=== PATIENT | male | born 2000 | race Caucasian/White ===

== ENCOUNTER 2021-01-05 06:31 | Inpatient (IN) | payer SELFPAY ==
[~2021-01-05] VITALS: Ht 170.2 cm; Wt 57.6 kg
[2021-01-05 06:45] LABS: BASO # 0.1 x10^3/uL (0.0-0.2); BASO % 1 % (0-3); EOS % 0 % (0-3); HEMATOCRIT 44.1 % (39.0-53.0); HEMOGLOBIN 14.7 g/dL (13.0-17.5); LYMPH # 4.9 x10^3/uL (1.0-4.8); LYMPH % 26 % (24-48); MEAN CORPUSCULAR HEMOGLOBIN 28 pg (25-35); MEAN CORPUSCULAR HGB CONC 33 g/dL (31-37); MEAN CORPUSCULAR VOLUME 85 fL (79-100); MONO # 1.4 x10^3/uL (0.0-1.1); MONO % 7 % (0-9); NEUT # 12.5 x10^3/uL (1.8-7.7); NEUT % 66 % (31-73); PLATELET COUNT 316 x10^3/uL (140-400); RED BLOOD COUNT 5.18 x10^6/uL (4.30-5.70); RED CELL DISTRIBUTION WIDTH 14.2 % (11.5-14.5)
[2021-01-05] MEDS ORDERED: IV NORMAL SALINE 1000ML BAG 1,000 ML IV ONE ×2 (07:00→08:30)
[2021-01-05] MEDS ORDERED: MORPHINE SULFATE 4 MG/ML INJ. IVP ONE (07:00)
[2021-01-05] MEDS ORDERED: ONDANSETRON PF 4 MG/2 ML VIAL. IVP ONE (07:00)
[2021-01-05 07:15] LABS: CREATININE 1.4 mg/dL (0.7-1.3); GFR 64.6; POTASSIUM 3.9 mmol/L (3.5-5.1)
[2021-01-05 07:17] LABS: ALBUMIN 4.8 g/dL (3.4-5.0); ALBUMIN/GLOBULIN RATIO 1.5 (1.0-1.7); TOTAL BILIRUBIN 0.7 mg/dL (0.2-1.0); TOTAL PROTEIN 8.1 g/dL (6.4-8.2)
--- NOTE | 2021-01-05 07:27 | PHYS DOC ---
Past Medical History Past Surgical History: No Surgical History Smoking Status: Never Smoker Alcohol Use: None General Adult EDM: Chief Complaint: ABDOMINAL PAIN HPI: HPI: Patient is a 20 year old male who present to ER for evaluation of left low abdominal pain started several hours ago. Patient said pain radiated into his left testicle area. Patient has history of kidney stones in the past. Patient denies any cough or fever. Patient described the pain as sharp stabbing pain, rate 10 out of 10 on the pain scale. Patient said he had the same pain 2 days ago, but the pain was in the epigastric area, he also had chest pain. Patient went to the urgent care, they tested him , negative for COVID-19. Review of Systems: Review of Systems: Constitutional: Denies fever or chills. [] Eyes: Denies change in visual acuity. [] HENT: Denies nasal congestion or sore throat. [] Respiratory: Denies cough or shortness of breath. [] Cardiovascular: Denies chest pain or edema. [] GI: Positive for left side lower abdominal pain. : Denies dysuria. [] Musculoskeletal: Denies back pain or joint pain. [] Integument: Denies rash. [] Neurologic: Denies headache, focal weakness or sensory changes. [] Endocrine: Denies polyuria or polydipsia. [] Lymphatic: Denies swollen glands. [] Psychiatric: Denies depression or anxiety. [] Heart Score: C/O Chest Pain: N/A Risk Factors: Risk Factors: DM, Current or recent (<one month) smoker, HTN, HLP, family history of CAD, obesity. Risk Scores: Score 0 - 3: 2.5% MACE over next 6 weeks - Discharge Home Score 4 - 6: 20.3% MACE over next 6 weeks - Admit for Clinical Observation Score 7 - 10: 72.7% MACE over next 6 weeks - Early Invasive Strategies Current Medications: Current Medications Medications (Trade) Dose Ordered Sig/Mackenzie Start Time Stop Time Status Last Admin Dose Admin Hydromorphone HCl (Dilaudid) 2 mg 1X ONCE 01/05/21 07:30 01/05/21 07:31 01/05/21 07:22 2 MG Ketorolac Tromethamine (Toradol 30mg Vial) 30 mg 1X ONCE 01/05/21 07:30 01/05/21 07:31 01/05/21 06:51 30 MG Morphine Sulfate (Morphine Sulfate) 4 mg 1X ONCE 01/05/21 07:00 01/05/21 07:01 DC 01/05/21 06:48 4 MG Ondansetron HCl (Zofran) 4 mg 1X ONCE 01/05/21 07:00 01/05/21 07:01 DC 01/05/21 06:49 4 MG Sodium Chloride 1,000 ml @ 1,000 mls/hr 1X ONCE 01/05/21 07:00 01/05/21 07:59 01/05/21 06:47 1,000 MLS/HR Allergies: Allergies: Allergies Coded Allergies Type Severity Reaction Last Updated Verified No Known Drug Allergies 01/05/21 No Physical Exam: PE: Constitutional: Well developed, well nourished, moderate acute distress due to pain, non-toxic appearance. [] HENT: Normocephalic, atraumatic, bilateral external ears normal, oropharynx moist, no oral exudates, nose normal. [] Eyes: PERRLA, EOMI, conjunctiva normal, no discharge. [] Neck: Normal range of motion, no tenderness, supple, no stridor. [] Cardiovascular:Heart rate regular rhythm, no murmur [] Lungs & Thorax: Bilateral breath sounds clear to auscultation [] Abdomen: Bowel sounds normal, soft, There is tenderness on LEFT SIDE ABDOMEN AREA WITH GUARDING AND REBOUND, no masses, no pulsatile masses. [] Skin: Warm, dry, no erythema, no rash. [] Back: No tenderness, no CVA tenderness. [] Extremities: No tenderness, no cyanosis, no clubbing, ROM intact, no edema. [] Neurologic: Alert and oriented X 3, normal motor function, normal sensory function, no focal deficits noted. [] Psychologic: Affect normal, judgement normal, mood normal. [] Current Patient Data: Labs: Laboratory Tests Test 01/05/21 06:38 White Blood Count 19.0 x10^3/uL (4.0-11.0) H Red Blood Count 5.18 x10^6/uL (4.30-5.70) Hemoglobin 14.7 g/dL (13.0-17.5) Hematocrit 44.1 % (39.0-53.0) Mean Corpuscular Volume 85 fL (79-100) Mean Corpuscular Hemoglobin 28 pg (25-35) Mean Corpuscular Hemoglobin Concent 33 g/dL (31-37) Red Cell Distribution Width 14.2 % (11.5-14.5) Platelet Count 316 x10^3/uL (140-400) Neutrophils (%) (Auto) 66 % (31-73) Lymphocytes (%) (Auto) 26 % (24-48) Monocytes (%) (Auto) 7 % (0-9) Eosinophils (%) (Auto) 0 % (0-3) Basophils (%) (Auto) 1 % (0-3) Neutrophils # (Auto) 12.5 x10^3/uL (1.8-7.7) H Lymphocytes # (Auto) 4.9 x10^3/uL (1.0-4.8) H Monocytes # (Auto) 1.4 x10^3/uL (0.0-1.1) H Eosinophils # (Auto) 0.0 x10^3/uL (0.0-0.7) Basophils # (Auto) 0.1 x10^3/uL (0.0-0.2) Sodium Level 144 mmol/L (136-145) Potassium Level 3.9 mmol/L (3.5-5.1) Chloride Level 105 mmol/L (98-107) Carbon Dioxide Level 25 mmol/L (21-32) Anion Gap 14 (6-14) Blood Urea Nitrogen 15 mg/dL (8-26) Creatinine 1.4 mg/dL (0.7-1.3) H Estimated GFR (Cockcroft-Gault) 64.6 BUN/Creatinine Ratio 11 (6-20) Glucose Level 83 mg/dL (70-99) Calcium Level 9.0 mg/dL (8.5-10.1) Total Bilirubin 0.7 mg/dL (0.2-1.0) Aspartate Amino Transferase (AST) 13 U/L (15-37) L Alanine Aminotransferase (ALT) 25 U/L (16-63) Alkaline Phosphatase 51 U/L (46-116) Total Protein 8.1 g/dL (6.4-8.2) Albumin 4.8 g/dL (3.4-5.0) Albumin/Globulin Ratio 1.5 (1.0-1.7) Lipase 263 U/L (73-393) Laboratory Tests 01/05/21 06:38 Laboratory Tests 01/05/21 06:38 Vital Signs: Vital Signs Date Time Temp Pulse Resp B/P (MAP) Pulse Ox O2 Delivery O2 Flow Rate FiO2 01/05/21 07:22 25 100 Room Air 01/05/21 06:40 98.3 147 137/83 (101) 98.3 EKG: EKG: [] Radiology/Procedures: Radiology/Procedures: [][facility] [address] [place] [address] IMAGING REPORT Signed PATIENT: MARLENE TAMAYO ACCOUNT: [id number] : 2000 LOCATION: ER AGE: 20 SEX: M EXAM STATUS: REG ER ORD. PHYSICIAN: OSMAR CABRAL DO REASON: LEFT SIDE SEVERE ABDOMINAL PAIN PROCEDURE: CT ABD PELV W/ORAL&IV CONTRAST INDICATION: Reason: LEFT SIDE SEVERE ABDOMINAL PAIN / Spl. Instructions: omni 300 75ml omni 240 50ml / History: COMPARISON: CT without contrast from earlier same day TECHNIQUE: Axial CT images were obtained through the abdomen and pelvis with intravenous contrast. One or more of the following individualized dose reduction techniques were ut ilized for this examination: 1. Automated exposure control; 2. Adjustment of the mA and/or kV according to patient size; 3. Use of iterative reconstruction technique. FINDINGS: Vascular: No abdominal aortic aneurysm. Hepatobiliary: Periportal edema is identified throughout liver. There is also some pericholecystic edema. Pancreas: No peripancreatic edema. Spleen: Mildly prominent in size. Renal/Bladder: No hydronephrosis. Gastrointestinal: Contrast is seen within the large and small bowel without evidence of obstruction. Appendix partially seen within the right lower quadrant and does not appear dilated. Air and contrast within the lumen. Scattered sclerotic foci in the osseous structures most commonly from bone island. IMPRESSION: * No evidence of bowel obstruction. The visualized appendix does not appear dilated. * No hydronephrosis. * Periportal and pericholecystic edema. Could be secondary to the patient's hydration status but would correlate with symptoms and lab markers to assess for alternative causes such as cholangitis or hepatitis. Electronically signed by: Anastasiya Zepeda MD (01/05/2021 10:25 AM) DESKTOP- [id number] DICTATED and SIGNED BY: ANASTASIYA ZEPEDA MD DATE: 01/05/21 [id number] 0 Course & Med Decision Making: Course & Med Decision Making Pertinent Labs and Imaging studies reviewed. (See chart for details) Patient is a 20-year-old male who present to ER due to severe low abdominal pain. Patient does have a history of kidney stone. Presentation of the pain OUT OF portion WAS suspicious for kidney stone , CT scan of his abdomen pelvis without oral and IV contrast did not show any acute problem. White blood cell count and lactic acid are elevated., Patient was still in severe pain, suspicious for ischemic bowel. Patient was rescanned of his abdomen pelvis with oral and IV contrast. CT scan with contrast did not show any acute problem either. Patient was given IV fluid, IV antibiotic in the ER. Patient will be admitted for further evaluation treatment. Discussed with hospitalist on-call Dr. Cadena who agreed to admit the patient. Lucy Disclaimer: Lucy Disclaimer: This electronic medical record was generated, in whole or in part, using a voice recognition dictation system. Departure Departure Impression: Primary Impression: Acute abdominal pain Additional Impression: Sepsis Disposition: ADMITTED INPATIENT Admitting Physician: MEKAS (DR. SCHULZ) Condition: IMPROVED OSMAR CABRAL DO Jan 05, 2021 07:27
[2021-01-05] MEDS ORDERED: KETOROLAC 30 MG/ML VIAL. IVP ONE (07:30)
[2021-01-05] MEDS ORDERED: HYDROmorphone 2 MG/ML VIAL IVP ONE (07:30)
--- NOTE | 2021-01-05 07:31 | RAD ---
Abdominal and Pelvis CT, Without Contrast: History: Reason: left side abdominal pain, hx of kidney stone / Comparison: None. Procedure: Axial images are obtained of the abdomen and pelvis, without IV or oral contrast. Oral Contrast: No Findings: Evaluation of solid organs is limited without contrast. There is moderate motion artifact. The appendix appears normal. The gallbladder appears normal. Liver: Normal. Spleen: Normal. Pancreas: Normal. Adrenal Glands: Normal. Kidneys: Normal. There is no free air. There is mild free fluid. There is no lymphadenopathy. The urinary bladder is collapsed and not well evaluated. There is no pericolonic inflammation identified. Impression: Limited study due to motion. There is mild free fluid in the pelvis. End impression PQRS Compliance Statement: One or more of the following individualized dose reduction techniques were utilized for this examinat ion: 1. Automated exposure control 2. Adjustment of the mA and/or kV according to patient size 3. Use of iterative reconstruction technique Electronically signed by: Alex Nielsen III, MD (01/05/2021 7:28 AM) [facility]
[2021-01-05] MEDS ORDERED: IOHEXOL 300 MG/ML 100ML VIAL. IV ONE (08:45)
[2021-01-05] MEDS ORDERED: PIPERACILLIN/TAZOBACTAM 3.375 GM in IV NORMAL SALINE 50ML 50 ML IV ONE (08:45)
[2021-01-05] MEDS ORDERED: CONTRAST GIVEN. MC PRN (08:45)
[2021-01-05] MEDS ORDERED: IOHEXOL 240 MG/ML 50ML VIAL. PO ONE (08:45)
--- NOTE | 2021-01-05 10:28 | RAD ---
INDICATION: Reason: LEFT SIDE SEVERE ABDOMINAL PAIN / Spl. Instructions: omni 300 75ml omni 240 50ml / History: COMPARISON: CT without contrast from earlier same day TECHNIQUE: Axial CT images were obtained through the abdomen and pelvis with intravenous contrast. One or more of the following individualized dose reduction techniques were utilized for this examinat ion: 1. Automated exposure control; 2. Adjustment of the mA and/or kV according to patient size; 3 . Use of iterative reconstruction technique. FINDINGS: Vascular: No abdominal aortic aneurysm. Hepatobiliary: Periportal edema is identified throughout liver. There is also some pericholecystic ed alejandro. Pancreas: No peripancreatic edema. Spleen: Mildly prominent in size. Renal/Bladder: No hydronephrosis. Gastrointestinal: Contrast is seen within the large and small bowel without evidence of obstruction. Appendix partially seen within the right lower quadrant and does not appear dilated. Air and contrast within the lumen. Scattered sclerotic foci in the osseous structures most commonly from bone island. IMPRESSION: * No evidence of bowel obstruction. The visualized appendix does not appear dilated. * No hydronephrosis. * Periportal and pericholecystic edema. Could be secondary to the patient's hydration status but wou ld correlate with symptoms and lab markers to assess for alternative causes such as cholangitis or he patitis. Electronically signed by: Bernardo Villarreal MD (01/05/2021 10:25 AM) [id number]
[2021-01-05] MEDS ORDERED: ONDANSETRON PF 4 MG/2 ML VIAL. IVP PRN ×2 (11:45→14:30)
[2021-01-05] MEDS ORDERED: MORPHINE SULFATE 2 MG/ML INJ. IVP PRN (11:45)
[2021-01-05 12:49] LABS: BILIRUBIN,URINE NEGATIVE (NEG); CLARITY,URINE CLEAR; COLOR,URINE YELLOW; NITRITE,URINE NEGATIVE (NEG); PROTEIN,URINE 30 mg/dL (NEG-TRACE); UROBILINOGEN,URINE 0.2 mg/dL (0.2 mg/dL)
[2021-01-05 12:58] LABS: BACTERIA,URINE 0 /HPF (0-FEW); RBC,URINE 0 /HPF (0-2); WBC,URINE 0 /HPF (0-4)
[2021-01-05 13:30] VITALS: BP 128/70
[2021-01-05] MEDS: IV NORMAL SALINE 1000ML BAG 1,000 ML IV SCH ×2 (13:43→22:10)
--- NOTE | 2021-01-05 14:10 | PDOC1 ---
History and Physical Date of Admission Date of Admission DATE: 01/05/21 TIME: 14:10 Identification/Chief Complaint Chief Complaint Abdominal pain Source Source: Patient History of Present Illness History of Present Illness Mr Pruitt is a 20 year old male who present to ER for evaluation of left low abdominal pain. Patient said pain radiated into his left testicle area. He compares it to history of kidney stones. Patient described the pain as sharp stabbing pain, rate 10 out of 10 on the pain scale. Patient said he had the same pain 2 days ago, but the pain was in the epigastric area, he also had chest pain. Patient went to the urgent care, they tested him, negative for COVID-19 on 01/03 and was given prednisone and azithromycin. He does have a cough, no fever. He works for [id number], is not vaccinated against COVID 19, no exposures. WBC 19, Hb 14.7, platelets 316, NA 144, K3.9, BUN 15, CR 1.4, lactic acid 3.7, UA bland, CT abdomen pelvis without contrast with no nephrolithiasis. CT abdomen pelvis with contrast with no intra-abdominal pathology. His pain was only relieved by dilaudid and toradol in ED. Admitted for further care. Past Medical History Cardiovascular: No pertinent hx Past Surgical History Past Surgical History: No pertinent history Family History Family History reviewed Family History: No Significant Social History Smoke: No ALCOHOL: none Drugs: Marijuana Current Problem List Problem List Problems Medical Problems: (1) Acute abdominal pain Status: Acute (2) Sepsis Status: Acute Current Medications Current Medications Current Medications Ondansetron HCl (Zofran) 4 mg 1X ONCE IVP Last administered on 01/05/21at 06:49; Start 01/05/21 at 07:00; Stop 01/05/21 at 07:01; Status DC Sodium Chloride 1,000 ml @ 1,000 mls/hr 1X ONCE IV Last administered on 01/05/21at 06:47; Start 01/05/21 at 07:00; Stop 01/05/21 at 07:59; Status DC Morphine Sulfate (Morphine Sulfate) 4 mg 1X ONCE IVP Last administered on 01/05/21at 06:48; Start 01/05/21 at 07:00; Stop 01/05/21 at 07:01; Status DC Ketorolac Tromethamine (Toradol 30mg Vial) 30 mg 1X ONCE IVP Last administered on 01/05/21at 06:51; Start 01/05/21 at 07:30; Stop 01/05/21 at 07:31; Status DC Hydromorphone HCl (Dilaudid) 2 mg 1X ONCE IVP Last administered on 01/05/21at 07:22; Start 01/05/21 at 07:30; Stop 01/05/21 at 07:31; Status DC Sodium Chloride 1,000 ml @ 1,000 mls/hr 1X ONCE IV Last administered on 01/05/21at 08:30; Start 01/05/21 at 08:30; Stop 01/05/21 at 09:29; Status DC Iohexol (Omnipaque 240 Mg/ml) 50 ml 1X ONCE PO Last administered on 01/05/21at 08:45; Start 01/05/21 at 08:45; Stop 01/05/21 at 08:46; Status DC Iohexol (Omnipaque 300 Mg/ml) 75 ml 1X ONCE IV Last administered on 01/05/21at 08:45; Start 01/05/21 at 08:45; Stop 01/05/21 at 08:46; Status DC Piperacillin Sod/ Tazobactam Sod 3.375 gm/Sodium Chloride 50 ml @ 100 mls/hr 1X ONCE IV Last administered on 01/05/21at 08:59; Start 01/05/21 at 08:45; Stop 01/05/21 at 09:14; Status DC Info (CONTRAST GIVEN -- Rx MONITORING) 1 each PRN DAILY PRN MC SEE COMMENTS; Start 01/05/21 at 08:45; Stop 01/07/21 at 08:44 Ondansetron HCl (Zofran) 4 mg PRN Q8HRS PRN IVP NAUSEA/VOMITING; Start 01/05/21 at 11:45; Stop 01/06/21 at 11:44 Morphine Sulfate (Morphine Sulfate) 2 mg PRN Q2HR PRN IVP PAIN; Start 01/05/21 at 11:45; Stop 01/06/21 at 11:44 Sodium Chloride 1,000 ml @ 100 mls/hr Q10H IV Last administered on 01/05/21at 13:43; Start 01/05/21 at 11:45; Stop 01/06/21 at 11:44 Allergies Allergies: Coded Allergies: No Known Drug Allergies (Unverified , 01/05/21) ROS General: YES: Fatigue, Malaise; No: Chills, Night Sweats, Appetite, Other PSYCHOLOGICAL ROS: No: Anxiety, Behavioral Disorder, Concentration difficultie, Decreased libido, Depression, Disorientation, Hallucinations, Hostility, Irritablity, Memory difficulties, Mood Swings, Obsessive thoughts, Physical abuse, Sexual abuse, Sleep disturbances, Suicidal ideation, Other Eyes: No Blurry vision, No Decreased vision, No Double vision, No Dry eyes, No Excessive tearing, No Eye Pain, No Itchy Eyes, No Loss of vision, No Photophobia, No Scotomata, No Uses contacts, No Uses glasses, No Other HEENT: No: Heacaches, Visual Changes, Hearing change, Nasal congestion, Nasal discharge, Oral lesions, Sinus pain, Sore Throat, Epistaxis, Sneezing, Snoring, Tinnitus, Vertigo, Vocal changes, Other ALLERGY AND IMMUNOLOGY: No: Hives, Insect Bite Sensitivity, Itchy/Watery Eyes, Nasal Congestion, Post Nasal Drip, Seasonal Allergies, Other Hematological and Lymphatic: No: Bleeding Problems, Blood Clots, Blood Transfusions, Brusing, Night Sweats, Pallor, Swollen Lymph Nodes, Other ENDOCRINE: No: Breast Changes, Galactorrhea, Hair Pattern Changes, Hot Flashes, Malaise/lethargy, Mood Swings, Palpitations, Polydipsia/polyuria, Skin Changes, Temperature Intolerance, Unexpected Weight Changes, Other Breast: No New/Changing Breast Lumps, No Nipple changes, No Nipple discharge, No Other Respiratory: No: Cough, Hemoptysis, Orthopnea, Pleuritic Pain, Shortness of breath, SOB with excertion, Sputum Changes, Stridor, Tachypnea, Wheezing, Other Cardiovascular: No Chest Pain, No Palpitations, No Orthopnea, No Paroxysmal Noc. Dyspnea, No Edema, No Lt Headedness, No Other Gastrointestinal: Yes Nausea, Yes Abdominal Pain; No Vomiting, No Diarrhea, No Constipation, No Melena, No Hematochezia, No Other Genitourinary: No Dysuria, No Frequency, No Incontinence, No Hematuria, No Re tention, No Discharge, No Urgency, No Pain, No Flank Pain, No Other, No , No , No , No , No , No , No Musculoskeletal: No Gait Disturbance, No Joint Pain, No Joint Stiffness, No Joint Swelling, No Muscle Pain, No Muscular Weakness, No Pain In:, No Swelling In:, No Other Neurological: No Behavorial Changes, No Bowel/Bladder ControlChng, No Confusion, No Dizziness, No Gait Disturbance, No Headaches, No Impaired Coord/balance, No Memory Loss, No Numbness/Tingling, No Seizures, No Speech Problems, No Tremors, No Visual Changes, No Weakness, No Other Skin: No Dry Skin, No Eczema, No Hair Changes, No Lumps, No Mole Changes, No Mottling, No Nail Changes, No Pruritus, No Rash, No Skin Lesion Changes, No Other, No Acne Physical Exam General: Alert, Oriented X3, Cooperative, moderate distress HEENT: Atraumatic, PERRLA, EOMI, Mucous membr. moist/pink Lungs: Clear to auscultation, Normal air movement Heart: S1S2, RRR, no thrills, no rubs, no gallops, no murmurs Abdomen: Normal bowel sounds, Soft, No hepatosplenomegaly, No masses, Other (LLQ tenderness) Male Genitals Exam: normal genitalia, normal prostate Extremities: No clubbing, No cyanosis, No edema, Normal pulses, No tenderness/swelling Skin: No rashes, No breakdown, No significant lesion Neuro: Normal gait, Normal speech, Strength at 5/5 X4 ext, Normal tone, Sensation intact, Cranial nerves 3-12 NL, Reflexes 2+ Psych/Mental Status: Mental status NL, Mood NL Vitals Vitals Vital Signs Date Time Temp Pulse Resp B/P (MAP) Pulse Ox O2 Delivery O2 Flow Rate FiO2 01/05/21 13:30 98.9 53 18 128/70 (89) 98 Room Air 98.9 Labs Labs Laboratory Tests Test 01/05/21 06:38 01/05/21 12:16 01/05/21 12:32 White Blood Count 19.0 x10^3/uL (4.0-11.0) Red Blood Count 5.18 x10^6/uL (4.30-5.70) Hemoglobin 14.7 g/dL (13.0-17.5) Hematocrit 44.1 % (39.0-53.0) Mean Corpuscular Volume 85 fL (79-100) Mean Corpuscular Hemoglobin 28 pg (25-35) Mean Corpuscular Hemoglobin Concent 33 g/dL (31-37) Red Cell Distribution Width 14.2 % (11.5-14.5) Platelet Count 316 x10^3/uL (140-400) Neutrophils (%) (Auto) 66 % (31-73) Lymphocytes (%) (Auto) 26 % (24-48) Monocytes (%) (Auto) 7 % (0-9) Eosinophils (%) (Auto) 0 % (0-3) Basophils (%) (Auto) 1 % (0-3) Neutrophils # (Auto) 12.5 x10^3/uL (1.8-7.7) Lymphocytes # (Auto) 4.9 x10^3/uL (1.0-4.8) Monocytes # (Auto) 1.4 x10^3/uL (0.0-1.1) Eosinophils # (Auto) 0.0 x10^3/uL (0.0-0.7) Basophils # (Auto) 0.1 x10^3/uL (0.0-0.2) Sodium Level 144 mmol/L (136-145) Potassium Level 3.9 mmol/L (3.5-5.1) Chloride Level 105 mmol/L (98-107) Carbon Dioxide Level 25 mmol/L (21-32) Anion Gap 14 (6-14) Blood Urea Nitrogen 15 mg/dL (8-26) Creatinine 1.4 mg/dL (0.7-1.3) Estimated GFR (Cockcroft-Gault) 64.6 BUN/Creatinine Ratio 11 (6-20) Glucose Level 83 mg/dL (70-99) Lactic Acid Level 3.7 mmol/L (0.4-2.0) 0.9 mmol/L (0.4-2.0) Calcium Level 9.0 mg/dL (8.5-10.1) Total Bilirubin 0.7 mg/dL (0.2-1.0) Aspartate Amino Transf (AST/SGOT) 13 U/L (15-37) Alanine Aminotransferase (ALT/SGPT) 25 U/L (16-63) Alkaline Phosphatase 51 U/L (46-116) Total Protein 8.1 g/dL (6.4-8.2) Albumin 4.8 g/dL (3.4-5.0) Albumin/Globulin Ratio 1.5 (1.0-1.7) Lipase 263 U/L (73-393) Urine Collection Type Unknown Urine Color Yellow Urine Clarity Clear Urine pH 6.0 (<5.0-8.0) Urine Specific Anna >=1.030 (1.000-1.030) Urine Protein 30 mg/dL (NEG-TRACE) Urine Glucose (UA) Negative mg/dL (NEG) Urine Ketones (Stick) Trace mg/dL (NEG) Urine Blood Negative (NEG) Urine Nitrite Negative (NEG) Urine Bilirubin Negative (NEG) Urine Urobilinogen Dipstick 0.2 mg/dL (0.2 mg/dL) Urine Leukocyte Esterase Negative (NEG) Urine RBC 0 /HPF (0-2) Urine WBC 0 /HPF (0-4) Urine Bacteria 0 /HPF (0-FEW) Urine Mucus Slight /LPF Laboratory Tests Test 01/05/21 06:38 01/05/21 12:16 01/05/21 12:32 White Blood Count 19.0 x10^3/uL (4.0-11.0) Red Blood Count 5.18 x10^6/uL (4.30-5.70) Hemoglobin 14.7 g/dL (13.0-17.5) Hematocrit 44.1 % (39.0-53.0) Mean Corpuscular Volume 85 fL (79-100) Mean Corpuscular Hemoglobin 28 pg (25-35) Mean Corpuscular Hemoglobin Concent 33 g/dL (31-37) Red Cell Distribution Width 14.2 % (11.5-14.5) Platelet Count 316 x10^3/uL (140-400) Neutrophils (%) (Auto) 66 % (31-73) Lymphocytes (%) (Auto) 26 % (24-48) Monocytes (%) (Auto) 7 % (0-9) Eosinophils (%) (Auto) 0 % (0-3) Basophils (%) (Auto) 1 % (0-3) Neutrophils # (Auto) 12.5 x10^3/uL (1.8-7.7) Lymphocytes # (Auto) 4.9 x10^3/uL (1.0-4.8) Monocytes # (Auto) 1.4 x10^3/uL (0.0-1.1) Eosinophils # (Auto) 0.0 x10^3/uL (0.0-0.7) Basophils # (Auto) 0.1 x10^3/uL (0.0-0.2) Sodium Level 144 mmol/L (136-145) Potassium Level 3.9 mmol/L (3.5-5.1) Chloride Level 105 mmol/L (98-107) Carbon Dioxide Level 25 mmol/L (21-32) Anion Gap 14 (6-14) Blood Urea Nitrogen 15 mg/dL (8-26) Creatinine 1.4 mg/dL (0.7-1.3) Estimated GFR (Cockcroft-Gault) 64.6 BUN/Creatinine Ratio 11 (6-20) Glucose Level 83 mg/dL (70-99) Lactic Acid Level 3.7 mmol/L (0.4-2.0) 0.9 mmol/L (0.4-2.0) Calcium Level 9.0 mg/dL (8.5-10.1) Total Bilirubin 0.7 mg/dL (0.2-1.0) Aspartate Amino Transf (AST/SGOT) 13 U/L (15-37) Alanine Aminotransferase (ALT/SGPT) 25 U/L (16-63) Alkaline Phosphatase 51 U/L (46-116) Total Protein 8.1 g/dL (6.4-8.2) Albumin 4.8 g/dL (3.4-5.0) Albumin/Globulin Ratio 1.5 (1.0-1.7) Lipase 263 U/L (73-393) Urine Collection Type Unknown Urine Color Yellow Urine Clarity Clear Urine pH 6.0 (<5.0-8.0) Urine Specific Anna >=1.030 (1.000-1.030) Urine Protein 30 mg/dL (NEG-TRACE) Urine Glucose (UA) Negative mg/dL (NEG) Urine Ketones (Stick) Trace mg/dL (NEG) Urine Blood Negative (NEG) Urine Nitrite Negative (NEG) Urine Bilirubin Negative (NEG) Urine Urobilinogen Dipstick 0.2 mg/dL (0.2 mg/dL) Urine Leukocyte Esterase Negative (NEG) Urine RBC 0 /HPF (0-2) Urine WBC 0 /HPF (0-4) Urine Bacteria 0 /HPF (0-FEW) Urine Mucus Slight /LPF Images Images Axial CT images were obtained through the abdomen and pelvis with intravenous contrast: Vascular: No abdominal aortic aneurysm. Hepatobiliary: Periportal edema is identified throughout liver. There is also some pericholecystic edema. Pancreas: No peripancreatic edema. Spleen: Mildly prominent in size. Renal/Bladder: No hydronephrosis. Gastrointestinal: Contrast is seen within the large and small bowel without evidence of obstruction. Appendix partially seen within the right lower quadrant and does not appear dilated. Air and contrast within the lumen. Scattered sclerotic foci in the osseous structures most commonly from bone island. IMPRESSION: * No evidence of bowel obstruction. The visualized appendix does not appear dilated. * No hydronephrosis. * Periportal and pericholecystic edema. Could be secondary to the patient's hydration status but would correlate with symptoms and lab markers to assess for alternative causes such as cholangitis or hepatitis. Abdominal and Pelvis CT, Without Contrast: Findings: Evaluation of solid organs is limited without contrast. There is moderate motion artifact. The appendix appears normal. The gallbladder appears normal. Liver: Normal. Spleen: Normal. Pancreas: Normal. Adrenal Glands: Normal. Kidneys: Normal. There is no free air. There is mild free fluid. There is no lymphadenopathy. The urinary bladder is collapsed and not well evaluated. There is no pericolonic inflammation identified. Impression: Limited study due to motion. There is mild free fluid in the pelvis. VTE Prophylaxis Ordered VTE Prophylaxis Devices: No VTE Pharmacological Prophylaxi: No Assessment/Plan Assessment/Plan A/P: Acute abdominal pain - No clear etiology. Not having blood on the UA think about past kidney stone. Testicular exam is benign no concern for torsion good contrast-enhancement visualized on CT. Possibly this is a viral etiology no signs of ischemic bowel. NPO, IV pain control SIRS - no clear bacterial infection, will give empiric antibiotics after blood cultures. Check STI panel ADEN - likely from vasomotor nephropathy from dehydration vs recently passed kidney stone lactic acid elevated - improved with IVF FEN - NPO PPX - ambulatory, low risk FULL CODE Dispo - inpatient Justifications for Admission Other Justification VIRA SCHULZ MD Jan 05, 2021 14:10
[2021-01-05] MEDS ORDERED: HYDROmorphone 2 MG/ML VIAL IVP PRN (14:30)
[2021-01-05] MEDS ORDERED: guaiFENesin DM 200MG/20MG 10 ML SYRUP PO PRN (14:30)
[2021-01-05] MEDS ORDERED: ACETAMINOPHEN 325 MG TABLET. PO PRN (14:30)
[2021-01-05 14:45] LABS: MONONUCLEOSIS PATIENT NEGATIVE (NEGATIVE)
[2021-01-05 15:28] VITALS: BP 102/61
[2021-01-05] MEDS: PIPERACILLIN/TAZOBACTAM 3.375 GM in IV NORMAL SALINE 50ML 50 ML IV SCH (16:22)
[2021-01-05] MEDS ORDERED: PRED50TA PO (17:17)
[2021-01-05] MEDS ORDERED: KETO10TA PO (17:17)
[2021-01-05 19:00] VITALS: BP 138/69
[2021-01-05] MEDS: IV NORMAL SALINE 1000ML BAG 1,000 ML IV PRN (21:43)
[2021-01-05 23:00] VITALS: BP 130/62
[2021-01-06] MEDS: PIPERACILLIN/TAZOBACTAM 3.375 GM in IV NORMAL SALINE 50ML 50 ML IV SCH ×3 (00:36→12:16)
[2021-01-06] MEDS: traMADol 50 MG TABLET PO PRN ×2 (00:47→06:26)
[2021-01-06 03:00] VITALS: BP 137/70
[2021-01-06] MEDS: IV NORMAL SALINE 1000ML BAG 1,000 ML IV PRN (06:16)
[2021-01-06 07:00] VITALS: BP 153/84
--- NOTE | 2021-01-06 07:21 | PDOC ---
[facility] PROGRESS NOTE Date of Service DOS: DATE: 01/06/21 TIME: 07:21 Chief Complaint Chief Complaint A/P: Acute abdominal pain - Migratory, now epigastric, though he has had this frequently, thought it was chest pain from lifting, but has had solid food dysphagia with "sticking" SIRS - no clear bacterial infection, will give empiric antibiotics after blood cultures. Checked STI panel ADEN - likely from vasomotor nephropathy from dehydration vs recently passed kidney stone lactic acid elevated - improved with IVF FEN - Regular diet PPX - ambulatory, low risk FULL CODE Dispo - inpatient History of Present Illness History of Present Illness Mr Pruitt is a 20 year old male who present to ER for evaluation of left low abdominal pain. Patient said pain radiated into his left testicle area. He compares it to history of kidney stones. Patient described the pain as sharp stabbing pain, rate 10 out of 10 on the pain scale. Patient said he had the same pain 2 days ago, but the pain was in the epigastric area, he also had chest pain. Patient went to the urgent care, they tested him, negative for COVID-19 on 01/03 and was given prednisone and azithromycin. He does have a cough, no fever. He works for [employer] is not vaccinated against COVID 19, no exposures. WBC 19, Hb 14.7, platelets 316, NA 144, K3.9, BUN 15, CR 1.4, lactic acid 3.7, UA bland, CT abdomen pelvis without contrast with no nephrolithiasis. CT abdomen pelvis with contrast with no intra-abdominal pathology. His pain was only relieved by dilaudid and toradol in ED. Admitted for further care. Pain now migratory, now epigastric, though he has had this frequently, thought it was chest pain from lifting, but has had solid food dysphagia with "sticking". Bilirubin up to 2.2 creatinine down to 1.2. Passing gas is able to eat liquids but cannot get his pills to stop sticking and unable to eat biscuits and gravy. Negative Avina sign on exam. Afebrile. Vitals/I&O Vitals/I&O: Vital Signs Date Time Temp Pulse Resp B/P (MAP) Pulse Ox O2 Delivery O2 Flow Rate FiO2 01/06/21 03:00 98.8 73 18 137/70 (92) 95 Room Air 98.8 Physical Exam General: Alert, Oriented X3, Cooperative, moderate distress Abdomen: Normal bowel sounds, Soft, No hepatosplenomegaly, No masses, Other (LLQ tenderness) Extremities: No clubbing, No cyanosis, No edema, Normal pulses, No tenderness/swelling Skin: No rashes, No breakdown, No significant lesion Labs Labs: Laboratory Tests Test 01/05/21 12:16 01/05/21 12:32 01/05/21 14:40 Lactic Acid Level 0.9 mmol/L (0.4-2.0) Urine Collection Type Unknown Urine Color Yellow Urine Clarity Clear Urine pH 6.0 (<5.0-8.0) Urine Specific Embudo >=1.030 (1.000-1.030) Urine Protein 30 mg/dL (NEG-TRACE) Urine Glucose (UA) Negative mg/dL (NEG) Urine Ketones (Stick) Trace mg/dL (NEG) Urine Blood Negative (NEG) Urine Nitrite Negative (NEG) Urine Bilirubin Negative (NEG) Urine Urobilinogen Dipstick 0.2 mg/dL (0.2 mg/dL) Urine Leukocyte Esterase Negative (NEG) Urine RBC 0 /HPF (0-2) Urine WBC 0 /HPF (0-4) Urine Bacteria 0 /HPF (0-FEW) Urine Mucus Slight /LPF Treponema pallidum Antibody Nonreactive (Nonreactive) Hepatitis A IgM Antibody Nonreactive (Nonreactive) Hepatitis B Surface Antigen Nonreactive (Nonreactive) Hepatitis B Core IgM Antibody Nonreactive (Nonreactive) Hepatitis C IgG Antibody Nonreactive (Nonreactive) HIV (1&2) Antibody Screen Nonreactive (Nonreactive) Assessment and Plan Assessmemt and Plan Problems Medical Problems: (1) Acute abdominal pain Status: Acute (2) Sepsis Status: Acute Comment Review of Relevant I have reviewed the following items william (where applicable) has been applied. Medications: Current Medications Medications (Trade) Dose Ordered Sig/Mackenzie Route PRN Reason Start Time Stop Time Status Last Admin Dose Admin Ketorolac Tromethamine (Toradol 30mg Vial) 30 mg 1X ONCE IVP 01/05/21 07:30 01/05/21 07:31 DC 01/05/21 06:51 Hydromorphone HCl (Dilaudid) 2 mg 1X ONCE IVP 01/05/21 07:30 01/05/21 07:31 DC 01/05/21 07:22 Sodium Chloride 1,000 ml @ 1,000 mls/hr 1X ONCE IV 01/05/21 08:30 01/05/21 09:29 DC 01/05/21 08:30 Iohexol (Omnipaque 240 Mg/ml) 50 ml 1X ONCE PO 01/05/21 08:45 01/05/21 08:46 DC 01/05/21 08:45 Iohexol (Omnipaque 300 Mg/ml) 75 ml 1X ONCE IV 01/05/21 08:45 01/05/21 08:46 DC 01/05/21 08:45 Piperacillin Sod/ Tazobactam Sod 3.375 gm/Sodium Chloride 50 ml @ 100 mls/hr 1X ONCE IV 01/05/21 08:45 01/05/21 09:14 DC 01/05/21 08:59 Sodium Chloride 1,000 ml @ 100 mls/hr Q10H IV 01/05/21 11:45 01/06/21 11:44 01/05/21 13:43 Sodium Chloride 1,000 ml @ 125 mls/hr CONT PRN IV IV FLUID 01/05/21 14:30 01/06/21 06:16 DC 01/06/21 06:16 Piperacillin Sod/ Tazobactam Sod 3.375 gm/Sodium Chloride 50 ml @ 100 mls/hr Q6HRS IV 01/05/21 16:00 01/06/21 06:16 Tramadol HCl (Ultram) 50 mg PRN Q6HRS PRN PO PAIN 01/05/21 14:30 01/06/21 06:26 Justifications for Admission Other Justification VIRA SCHULZ MD Jan 06, 2021 07:21
[2021-01-06 07:33] LABS: BASO # 0.1 x10^3/uL (0.0-0.2); BASO % 1 % (0-3); EOS # 0.2 x10^3/uL (0.0-0.7); EOS % 2 % (0-3); HEMATOCRIT 38.7 % (39.0-53.0); LYMPH # 2.6 x10^3/uL (1.0-4.8); LYMPH % 30 % (24-48); MEAN CORPUSCULAR HEMOGLOBIN 29 pg (25-35); MEAN CORPUSCULAR HGB CONC 34 g/dL (31-37); MEAN CORPUSCULAR VOLUME 86 fL (79-100); MONO # 0.6 x10^3/uL (0.0-1.1); MONO % 7 % (0-9); NEUT # 5.3 x10^3/uL (1.8-7.7); NEUT % 61 % (31-73); PLATELET COUNT 214 x10^3/uL (140-400); RED BLOOD COUNT 4.48 x10^6/uL (4.30-5.70); RED CELL DISTRIBUTION WIDTH 13.8 % (11.5-14.5); WHITE BLOOD COUNT 8.6 x10^3/uL (4.0-11.0)
[2021-01-06] MEDS: IV NORMAL SALINE 1000ML BAG 1,000 ML IV SCH (07:45)
[2021-01-06 08:05] LABS: ALBUMIN/GLOBULIN RATIO 1.2 (1.0-1.7); CALCIUM 7.9 mg/dL (8.5-10.1); CREATININE 1.2 mg/dL (0.7-1.3); GFR 77.2; POTASSIUM 3.8 mmol/L (3.5-5.1); TOTAL BILIRUBIN 2.2 mg/dL (0.2-1.0); TOTAL PROTEIN 5.5 g/dL (6.4-8.2)
[2021-01-06 11:00] VITALS: BP 122/64
[2021-01-06] MEDS ORDERED: LIDO:MAALOX 1:1 20 ML SINGLE DOSE. SWSW ONE (12:00)
--- NOTE | 2021-01-06 12:43 | PDOC2 ---
STAN ABARCA 01/06/21 1243: GI CONSULT Date of Service: DATE: 01/06/21 TIME: 12:29 Reason For Consult: epigastric pain on solids, concern for achalasia HPI: HPI: Pleasant 20 y/o male admitted though ER yesterday. Ill since last with "stomachache." Other notes mentions left-sided pain. Tells me always in epigastrium - "pressure" and "grabbing" that comes and goes, possibly worse after eating/drinking, possibly aggravated w/ movement. Pain occasionally radiates to upper back between shoulders. Associated w/ bur ping, acid reflux, and abnormal swallowing. Things go down slowly, hang up in midchest - eventually pass but feels discomfort in epigastrium. Never has to bring up swallowed food. This morning biscuits and gravy felt "uncomfortable" but ate some crackers and drank water. Denies odynophagia, n/v, constipation, hematochezia, melena, or change in appetite. Had one runny stool this morning. No previous EGD or colonoscopy. No GB, liver, pancreas, or PUD history. Occasional ibuprofen use. 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 Has lost about 10 pounds since starting this position. PMH: PMH: childhood asthma, drainage of right peritonsillar abscess FH: Family History: No pertinent hx (denies GI illnesses) Social History: Smoke: No ALCOHOL: none Drugs: Marijuana ROS: GEN: Denies fevers, chills, sweats HEENT: Denies blurred vision, sore throat CV: Denies chest pain RESP: Denies shortness of air, cough GI: Per HPI : Denies hematuria, dysuria ENDO: +weight loss NEURO: Denies confusion, dizziness MSK: Denies weakness, joint pain/swelling SKIN: Denies jaundice, pruritus Vitals: Vitals: Vital Signs Date Time Temp Pulse Resp B/P (MAP) Pulse Ox O2 Delivery O2 Flow Rate FiO2 01/06/21 11:00 98.8 73 18 122/64 (83) 96 98.8 01/06/21 08:23 Room Air Labs: Labs: Laboratory Tests Test 01/05/21 12:32 01/05/21 14:40 01/05/21 15:43 01/06/21 07:15 Urine Collection Type Unknown Urine Color Yellow Urine Clarity Clear Urine pH 6.0 (<5.0-8.0) Urine Specific [place] >=1.030 (1.000-1.030) Urine Protein 30 mg/dL (NEG-TRACE) Urine Glucose (UA) Negative mg/dL (NEG) Urine Ketones (Stick) Trace mg/dL (NEG) Urine Blood Negative (NEG) Urine Nitrite Negative (NEG) Urine Bilirubin Negative (NEG) Urine Urobilinogen Dipstick 0.2 mg/dL (0.2 mg/dL) Urine Leukocyte Esterase Negative (NEG) Urine RBC 0 /HPF (0-2) Urine WBC 0 /HPF (0-4) Urine Bacteria 0 /HPF (0-FEW) Urine Mucus Slight /LPF Treponema pallidum Antibody Nonreactive (Nonreactive) Hepatitis A IgM Antibody Nonreactive (Nonreactive) Hepatitis B Surface Antigen Nonreactive (Nonreactive) Hepatitis B Core IgM Antibody Nonreactive (Nonreactive) Hepatitis C IgG Antibody Nonreactive (Nonreactive) HIV (1&2) Antibody Screen Nonreactive (Nonreactive) SARS-CoV-2 RNA (MOIZ) Negative (Negative) White Blood Count 8.6 x10^3/uL (4.0-11.0) Red Blood Count 4.48 x10^6/uL (4.30-5.70) Hemoglobin 13.0 g/dL (13.0-17.5) Hematocrit 38.7 % (39.0-53.0) Mean Corpuscular Volume 86 fL (79-100) Mean Corpuscular Hemoglobin 29 pg (25-35) Mean Corpuscular Hemoglobin Concent 34 g/dL (31-37) Red Cell Distribution Width 13.8 % (11.5-14.5) Platelet Count 214 x10^3/uL (140-400) Neutrophils (%) (Auto) 61 % (31-73) Lymphocytes (%) (Auto) 30 % (24-48) Monocytes (%) (Auto) 7 % (0-9) Eosinophils (%) (Auto) 2 % (0-3) Basophils (%) (Auto) 1 % (0-3) Neutrophils # (Auto) 5.3 x10^3/uL (1.8-7.7) Lymphocytes # (Auto) 2.6 x10^3/uL (1.0-4.8) Monocytes # (Auto) 0.6 x10^3/uL (0.0-1.1) Eosinophils # (Auto) 0.2 x10^3/uL (0.0-0.7) Basophils # (Auto) 0.1 x10^3/uL (0.0-0.2) Erythrocyte Sedimentation Rate 2 (0-15) Sodium Level 143 mmol/L (136-145) Potassium Level 3.8 mmol/L (3.5-5.1) Chloride Level 108 mmol/L (98-107) Carbon Dioxide Level 29 mmol/L (21-32) Anion Gap 6 (6-14) Blood Urea Nitrogen 14 mg/dL (8-26) Creatinine 1.2 mg/dL (0.7-1.3) Estimated GFR (Cockcroft-Gault) 77.2 BUN/Creatinine Ratio 12 (6-20) Glucose Level 96 mg/dL (70-99) Calcium Level 7.9 mg/dL (8.5-10.1) Total Bilirubin 2.2 mg/dL (0.2-1.0) Aspartate Amino Transf (AST/SGOT) 14 U/L (15-37) Alanine Aminotransferase (ALT/SGPT) 17 U/L (16-63) Alkaline Phosphatase 42 U/L (46-116) C-Reactive Protein, Quantitative 1.3 mg/L (0-3.3) Total Protein 5.5 g/dL (6.4-8.2) Albumin 3.0 g/dL (3.4-5.0) Albumin/Globulin Ratio 1.2 (1.0-1.7) Allergies: Coded Allergies: No Known Drug Allergies (Unverified , 01/05/21) Medications: Current Medications Medications (Trade) Dose Ordered Sig/Mackenzie Route PRN Reason Start Time Stop Time Status Last Admin Dose Admin Sodium Chloride 1,000 ml @ 125 mls/hr CONT PRN IV IV FLUID 01/05/21 14:30 01/06/21 06:16 DC 01/06/21 06:16 Piperacillin Sod/ Tazobactam Sod 3.375 gm/Sodium Chloride 50 ml @ 100 mls/hr Q6HRS IV 01/05/21 16:00 01/06/21 12:16 Tramadol HCl (Ultram) 50 mg PRN Q6HRS PRN PO PAIN 01/05/21 14:30 01/06/21 06:26 Multi-Ingredient Mouthwash/Gargle (Gi Cocktail) 20 ml 1X ONCE SWSW 01/06/21 12:00 01/06/21 12:01 DC 01/06/21 12:16 Imaging: Imaging: CT A/P 01/05 IMPRESSION: * No evidence of bowel obstruction. The visualized appendix does not appear dilated. * No hydronephrosis. * Periportal and pericholecystic edema. Could be secondary to the patient's hydration status but would correlate with symptoms and lab markers to assess for alternative causes such as cholangitis or hepatitis. CT A/P 01/05 Impression: Limited study due to motion. There is mild free fluid in the pelvis. PE: GEN: NAD HEENT: Atraumatic, PERRL LUNGS: CTAB HEART: RRR ABD: NABS, S/ND, mild epigastric discomfort EXTREMITY: No edema SKIN: No rashes, no jaundice NEURO/PSYCH: A & O 3 A/P: A/P: Epigastric pain, acid reflux, dysphagia Leukocytosis, elevated lactic acid - resolved Mild hyperbilirubinemia - viral Hep panel negative Hypocalcemia, hypoalbuminemia Abnormal CT - periportal and pericholecystic edema could be secondary to the patient's hydration status but would correlate with symptoms and lab markers to assess for alternative causes such as cholangitis or hepatitis CRC screen - average risk COVID negative Marijuana use -- Nurse says going to try GI cocktail. Add PPI. Probably would benefit from EGD and/or esophagram - will review timing w/ Dr. Dash. Unclear significance of CT findings - will discuss w/ Dr. Dash. LAKIA DASH MD 01/06/21 1323: STAN ABARCA Jan 06, 2021 12:43 LAKIA DASH MD Jan 06, 2021 13:23
[2021-01-06] MEDS ORDERED: BARIUM SULFATE 96% 397 GM ENEMA. PR ONE ×2 (13:30→15:00)
[2021-01-06] MEDS ORDERED: BARIUM SULFATE 340 GM SUSPENSION. PO ONE (13:30)
[2021-01-06 15:00] VITALS: BP 112/70
[2021-01-06] MEDS ORDERED: SIMETHICONE/SOD BICARB/CITRIC ACID PACKET. PO ONE (15:00)
--- NOTE | 2021-01-06 15:26 | RAD ---
EXAM: Barium esophagram. HISTORY: Left-sided abdominal pain. Dysphagia. TECHNIQUE: Fluoroscopic imaging was performed during the oral administration of barium contrast of th in and thick consistencies. Effervescent crystals were administered for dedicated air contrast views. 7 fluoroscopic images were obtained for total fluoroscopy time of 0.6 minutes COMPARISON: CT dated 01/05/2021. FINDINGS: There is no evidence of aspiration or penetration. The esophagus is normal in configuration . No esophageal mucosal lesion is seen. There is no delayed transit of contrast into the stomach. The gastric contour and mucosal pattern is unremarkable. There is no evidence of gastroesophageal reflux . There is normal emptying of contrast into the small bowel. IMPRESSION: Unremarkable barium esophagram. Electronically signed by: Fozia Ludwig MD (01/06/2021 3:24 PM) [id number]
[2021-01-06] MEDS: PANTOPRAZOLE 40 MG TABLET.DR. PO SCH ×2 (16:30→17:16)
--- NOTE | 2021-01-06 17:59 | PDOC3 ---
Discharge Summary Visit Information Date of Admission: Jan 05, 2021 Date of Discharge: Jan 06, 2021 Admitting Diagnosis: Acute abdominal pain Final Diagnosis Problems Medical Problems: (1) Acute abdominal pain Status: Acute (2) Sepsis Status: Acute Brief Hospital Course Allergies Allergies Coded Allergies Type Severity Reaction Last Updated Verified No Known Drug Allergies 01/05/21 No Vital Signs Vital Signs Date Time Temp Pulse Resp B/P (MAP) Pulse Ox O2 Delivery O2 Flow Rate FiO2 01/06/21 15:00 98.6 78 18 112/70 (84) 98 98.6 01/06/21 08:23 Room Air Lab Results Laboratory Tests Test 01/05/21 06:38 01/05/21 12:16 01/05/21 12:32 01/05/21 14:40 White Blood Count 19.0 x10^3/uL (4.0-11.0) Red Blood Count 5.18 x10^6/uL (4.30-5.70) Hemoglobin 14.7 g/dL (13.0-17.5) Hematocrit 44.1 % (39.0-53.0) Mean Corpuscular Volume 85 fL (79-100) Mean Corpuscular Hemoglobin 28 pg (25-35) Mean Corpuscular Hemoglobin Concent 33 g/dL (31-37) Red Cell Distribution Width 14.2 % (11.5-14.5) Platelet Count 316 x10^3/uL (140-400) Neutrophils (%) (Auto) 66 % (31-73) Lymphocytes (%) (Auto) 26 % (24-48) Monocytes (%) (Auto) 7 % (0-9) Eosinophils (%) (Auto) 0 % (0-3) Basophils (%) (Auto) 1 % (0-3) Neutrophils # (Auto) 12.5 x10^3/uL (1.8-7.7) Lymphocytes # (Auto) 4.9 x10^3/uL (1.0-4.8) Monocytes # (Auto) 1.4 x10^3/uL (0.0-1.1) Eosinophils # (Auto) 0.0 x10^3/uL (0.0-0.7) Basophils # (Auto) 0.1 x10^3/uL (0.0-0.2) Sodium Level 144 mmol/L (136-145) Potassium Level 3.9 mmol/L (3.5-5.1) Chloride Level 105 mmol/L (98-107) Carbon Dioxide Level 25 mmol/L (21-32) Anion Gap 14 (6-14) Blood Urea Nitrogen 15 mg/dL (8-26) Creatinine 1.4 mg/dL (0.7-1.3) Estimated GFR (Cockcroft-Gault) 64.6 BUN/Creatinine Ratio 11 (6-20) Glucose Level 83 mg/dL (70-99) Lactic Acid Level 3.7 mmol/L (0.4-2.0) 0.9 mmol/L (0.4-2.0) Calcium Level 9.0 mg/dL (8.5-10.1) Total Bilirubin 0.7 mg/dL (0.2-1.0) Aspartate Amino Transf (AST/SGOT) 13 U/L (15-37) Alanine Aminotransferase (ALT/SGPT) 25 U/L (16-63) Alkaline Phosphatase 51 U/L (46-116) Total Protein 8.1 g/dL (6.4-8.2) Albumin 4.8 g/dL (3.4-5.0) Albumin/Globulin Ratio 1.5 (1.0-1.7) Lipase 263 U/L (73-393) Heterophil Agglutinins Negative (NEGATIVE) Urine Collection Type Unknown Urine Color Yellow Urine Clarity Clear Urine pH 6.0 (<5.0-8.0) Urine Specific [place] >=1.030 (1.000-1.030) Urine Protein 30 mg/dL (NEG-TRACE) Urine Glucose (UA) Negative mg/dL (NEG) Urine Ketones (Stick) Trace mg/dL (NEG) Urine Blood Negative (NEG) Urine Nitrite Negative (NEG) Urine Bilirubin Negative (NEG) Urine Urobilinogen Dipstick 0.2 mg/dL (0.2 mg/dL) Urine Leukocyte Esterase Negative (NEG) Urine RBC 0 /HPF (0-2) Urine WBC 0 /HPF (0-4) Urine Bacteria 0 /HPF (0-FEW) Urine Mucus Slight /LPF Treponema pallidum Antibody Nonreactive (Nonreactive) Hepatitis A IgM Antibody Nonreactive (Nonreactive) Hepatitis B Surface Antigen Nonreactive (Nonreactive) Hepatitis B Core IgM Antibody Nonreactive (Nonreactive) Hepatitis C IgG Antibody Nonreactive (Nonreactive) HIV (1&2) Antibody Screen Nonreactive (Nonreactive) Test 01/05/21 15:43 01/06/21 07:15 SARS-CoV-2 RNA (MOIZ) Negative (Negative) White Blood Count 8.6 x10^3/uL (4.0-11.0) Red Blood Count 4.48 x10^6/uL (4.30-5.70) Hemoglobin 13.0 g/dL (13.0-17.5) Hematocrit 38.7 % (39.0-53.0) Mean Corpuscular Volume 86 fL (79-100) Mean Corpuscular Hemoglobin 29 pg (25-35) Mean Corpuscular Hemoglobin Concent 34 g/dL (31-37) Red Cell Distribution Width 13.8 % (11.5-14.5) Platelet Count 214 x10^3/uL (140-400) Neutrophils (%) (Auto) 61 % (31-73) Lymphocytes (%) (Auto) 30 % (24-48) Monocytes (%) (Auto) 7 % (0-9) Eosinophils (%) (Auto) 2 % (0-3) Basophils (%) (Auto) 1 % (0-3) Neutrophils # (Auto) 5.3 x10^3/uL (1.8-7.7) Lymphocytes # (Auto) 2.6 x10^3/uL (1.0-4.8) Monocytes # (Auto) 0.6 x10^3/uL (0.0-1.1) Eosinophils # (Auto) 0.2 x10^3/uL (0.0-0.7) Basophils # (Auto) 0.1 x10^3/uL (0.0-0.2) Erythrocyte Sedimentation Rate 2 (0-15) Sodium Level 143 mmol/L (136-145) Potassium Level 3.8 mmol/L (3.5-5.1) Chloride Level 108 mmol/L (98-107) Carbon Dioxide Level 29 mmol/L (21-32) Anion Gap 6 (6-14) Blood Urea Nitrogen 14 mg/dL (8-26) Creatinine 1.2 mg/dL (0.7-1.3) Estimated GFR (Cockcroft-Gault) 77.2 BUN/Creatinine Ratio 12 (6-20) Glucose Level 96 mg/dL (70-99) Calcium Level 7.9 mg/dL (8.5-10.1) Total Bilirubin 2.2 mg/dL (0.2-1.0) Aspartate Amino Transf (AST/SGOT) 14 U/L (15-37) Alanine Aminotransferase (ALT/SGPT) 17 U/L (16-63) Alkaline Phosphatase 42 U/L (46-116) C-Reactive Protein, Quantitative 1.3 mg/L (0-3.3) Total Protein 5.5 g/dL (6.4-8.2) Albumin 3.0 g/dL (3.4-5.0) Albumin/Globulin Ratio 1.2 (1.0-1.7) Laboratory Tests Test 01/06/21 07:15 White Blood Count 8.6 x10^3/uL (4.0-11.0) Red Blood Count 4.48 x10^6/uL (4.30-5.70) Hemoglobin 13.0 g/dL (13.0-17.5) Hematocrit 38.7 % (39.0-53.0) Mean Corpuscular Volume 86 fL (79-100) Mean Corpuscular Hemoglobin 29 pg (25-35) Mean Corpuscular Hemoglobin Concent 34 g/dL (31-37) Red Cell Distribution Width 13.8 % (11.5-14.5) Platelet Count 214 x10^3/uL (140-400) Neutrophils (%) (Auto) 61 % (31-73) Lymphocytes (%) (Auto) 30 % (24-48) Monocytes (%) (Auto) 7 % (0-9) Eosinophils (%) (Auto) 2 % (0-3) Basophils (%) (Auto) 1 % (0-3) Neutrophils # (Auto) 5.3 x10^3/uL (1.8-7.7) Lymphocytes # (Auto) 2.6 x10^3/uL (1.0-4.8) Monocytes # (Auto) 0.6 x10^3/uL (0.0-1.1) Eosinophils # (Auto) 0.2 x10^3/uL (0.0-0.7) Basophils # (Auto) 0.1 x10^3/uL (0.0-0.2) Erythrocyte Sedimentation Rate 2 (0-15) Sodium Level 143 mmol/L (136-145) Potassium Level 3.8 mmol/L (3.5-5.1) Chloride Level 108 mmol/L (98-107) Carbon Dioxide Level 29 mmol/L (21-32) Anion Gap 6 (6-14) Blood Urea Nitrogen 14 mg/dL (8-26) Creatinine 1.2 mg/dL (0.7-1.3) Estimated GFR (Cockcroft-Gault) 77.2 BUN/Creatinine Ratio 12 (6-20) Glucose Level 96 mg/dL (70-99) Calcium Level 7.9 mg/dL (8.5-10.1) Total Bilirubin 2.2 mg/dL (0.2-1.0) Aspartate Amino Transf (AST/SGOT) 14 U/L (15-37) Alanine Aminotransferase (ALT/SGPT) 17 U/L (16-63) Alkaline Phosphatase 42 U/L (46-116) C-Reactive Protein, Quantitative 1.3 mg/L (0-3.3) Total Protein 5.5 g/dL (6.4-8.2) Albumin 3.0 g/dL (3.4-5.0) Albumin/Globulin Ratio 1.2 (1.0-1.7) Brief Hospital Course Mr Pruitt is a 20 year old male who present to ER for evaluation of left low abdominal pain. Patient said pain radiated into his left testicle area. He compares it to history of kidney stones. Patient described the pain as sharp stabbing pain, rate 10 out of 10 on the pain scale. Patient said he had the same pain 2 days ago, but the pain was in the epigastric area, he also had chest pain. Patient went to the urgent care, they tested him, negative for COVID-19 on 01/03 and was given prednisone and azithromycin. He does have a cough, no fever. He works for [employer], is not vaccinated against COVID 19, no exposures. WBC 19, Hb 14.7, platelets 316, NA 144, K3.9, BUN 15, CR 1.4, lactic acid 3.7, UA bland, CT abdomen pelvis without contrast with no nephrolithiasis. CT abdomen pelvis with contrast with no intra-abdominal pathology. His pain was only relieved by dilaudid and toradol in ED. Admitted for further care. Pain now migratory, now epigastric, though he has had this frequently, thought it was chest pain from lifting, but has had solid food dysphagia with "sticking". Bilirubin up to 2.2 creatinine down to 1.2. Passing gas is able to eat liquids but cannot get his pills to stop sticking and unable to eat biscuits and gravy. Negative Avina sign on exam. Afebrile. Esophagram normal Consults: Gastroenterology Problem list: Acute abdominal pain - Migratory, now epigastric, though he has had this frequently, thought it was chest pain from lifting, but has had solid food dysphagia with "sticking" which is likely esophagitis from GERD SIRS - no clear bacterial infection, will d/c empiric antibiotics after blood cultures. Checked STI panel, negative ADEN - likely from vasomotor nephropathy from dehydration vs recently passed kidney stone. resolved lactic acid elevated - improved with IVF Greater than 30 minutes spent on d/c home with PPI for 30 days Discharge Information Condition at Discharge: Improved Follow Up: Weeks (1) Disposition/Orders: D/C to Home Scheduled Ketorolac Tromethamine (Ketorolac Tromethamine) 10 Mg Tablet, 1 TAB PO PRN Q6HRS for Pain, #20 (Reported) Entered as Reported by: TAMMI PIERSON on 01/05/211716 Last Action: New Order on 01/05/211716 by TAMMI PIERSON Pantoprazole Sodium (Pantoprazole Sodium ) 40 Mg Tablet.dr, 40 MG PO DAILYAC for GERD for 30 Days, #30 Prescribed by: VIRA SCHULZ MD on 01/06/211801 Prednisone (Prednisone) 50 Mg Tablet, 1 TAB PO Q5DAYS for inflamation, #5 (Reported) Entered as Reported by: TAMMI PIERSON on 01/05/211716 Last Action: New Order on 01/05/211716 by TAMMI PIERSON Justicifation of Admission Dx: Justifications for Admission: Justification of Admission Dx: Yes VIRA SCHULZ MD Jan 06, 2021 17:59
[2021-01-06] MEDS ORDERED: PANT40TA77 PO (18:02)
--- NOTE | 2021-01-06 18:15 | NUR ---
Discharge Note: MARLENE TAMAYO Discharge instructions and discharge home medications reviewed with Patient and a copy given. All questions have been answered and understanding verbalized. The following instructions and handouts were given: follow up instructions, GERD packet Discontinued lines and drains: 20 guage right AC, tip intact. patient tolerated well. Patient discharged to home with self care via mother.
== END 2021-01-06 18:18 | disposition home or self-care (01) | DRG 391 ==
LOC: ER 06:31 → 5 NORTH 11:36
PROVIDERS: ADMIT Internal Medicine; ATTEND Internal Medicine
DX: K21.00 Gastro-esophageal reflux disease with esophagitis, without bleeding (principal); N17.0 Acute kidney failure with tubular necrosis; R65.10 Systemic inflammatory response syndrome (SIRS) of non-infectious origin without acute organ dysfunction; J45.909 Unspecified asthma, uncomplicated; Z20.822 Contact with and (suspected) exposure to COVID-19; D72.829 Elevated white blood cell count, unspecified; E80.6 Other disorders of bilirubin metabolism; E83.51 Hypocalcemia; E88.09 Other disorders of plasma-protein metabolism, not elsewhere classified; Z87.442 Personal history of urinary calculi
CPT/HCPCS: 36415; 74176; 74177; 74220; 80053; 81001; 83605; 83690; 85025; 85651; 86140; 86308; 86592; 86703; 86705; 86709; 86803; 87040; 87340; 87491; 87591; 96361; 96365; 96375; J1170; J1885; J2270; J2405; J2543; J7030; Q9966; Q9967; U0003; U0005; 99285-25; G0378